=== PATIENT | female | born 1975 | race Caucasian/White ===

== ENCOUNTER → 2016-02-19 | Outpatient (CLI) | payer OTHER ==
--- NOTE | 2016-02-19 21:06 | DI ---
MRI LOW EXTREMITY JNT W/O CN,02/19/2016 12:03 PM: Clinical History: Knee pain Previous Exam: None at this facility. Findings: Multiplanar MR images are obtained through the right knee without contrast. Bony alignment is anatomic. No fractures are seen. Marrow signal is preserved. There is a trace amount of free fluid within the knee joint. There is no evidence of Myers's cyst. There is thinning of the articular cartilage without full-thickness defects. There are some osteophyt es noted. The medial and lateral menisci are intact. The anterior and posterior cruciate ligaments are also int act. The major vascular flow voids are unremarkable. There is normal signal within the surrounding musculature. The anterior and posterior cruciate ligaments are intact. The medial and lateral collateral ligaments are also intact. Impression: 1. 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 2. Degenerative changes of the medial and lateral compartments. 3. Very small knee joint effusion.
== END ==
LOC: MRI 09:03
PROVIDERS: ATTEND Orthopaedic Surgery
DX: M25.561 Pain in right knee (principal); M22.41 Chondromalacia patellae, right knee; M25.461 Effusion, right knee
CPT/HCPCS: 73721

== ENCOUNTER → 2016-03-22 | Outpatient (CLI) | payer OTHER ==
--- NOTE | 2016-03-22 13:25 | DI ---
XR ANKLE COMPLETE MIN 3VW,03/22/2016 10:06 AM: Clinical History: Syndesmotic disruption of the right ankle Previous Exam: None at this facility. Findings: 3 views of the right ankle are obtained, and demonstrate anatomic alignment without fractures. There is enthesopathy noted at the insertion of the plantar fascia. There are osteophytes noted. There is a right ankle joint effusion. Impression: 1. Mild degenerative changes of the right ankle without fractures.
== END ==
LOC: ORTHO 12:10
PROVIDERS: ATTEND Orthopaedic Surgery
DX: S93.431D Sprain of tibiofibular ligament of right ankle, subsequent encounter (principal); S83.31XD Tear of articular cartilage of right knee, current, subsequent encounter; M25.471 Effusion, right ankle
CPT/HCPCS: 73610

== ENCOUNTER → 2016-07-22 | Outpatient (CLI) | payer OTHER ==
[2016-07-22 14:45] LABS: HEMATOCRIT 34.4 % (37.0-47.0); HEMOGLOBIN 10.8 g/dL (12.0-16.0); MEAN CORPUSCULAR HEMOGLOBIN 24.3 PG (27-31); MEAN CORPUSCULAR HGB CONC 31.4 g/dL (33-37); MEAN CORPUSCULAR VOLUME 77.3 FL (81-99); MEAN PLATELET VOLUME 10.9 FL (7.4-12.2); RED BLOOD COUNT 4.45 10^6/uL (4.20-5.40)
--- NOTE | 2016-07-23 09:48 | DI ---
US PELVIC COMPLETE (NON OB), US PELVIC-TRANSVAGINAL,07/22/2016 2:37 PM: Clinical History: Menorrhagia with irregular cycle. Previous Exam: None at this facility. Findings: Multiple transabdominal and endovaginal grayscale and color Doppler sonographic images are obtained t hrough the pelvis, and demonstrate a normal-appearing uterus measuring 10.8 x 5.5 x 6.5 cm with a 14 mm endometrial stripe. This is at the upper limits of normal. The right ovary measures 2.4 x 1.9 x 2.2 cm while the left ovary measures 5.3 x 3.4 x 4.2 cm. There i s normal Doppler flow bilaterally. There is no free fluid within the cul-de-sac. Impression: Normal pelvic ultrasound with endometrial stripe at the upper limits of normal.
== END ==
LOC: US 14:32
PROVIDERS: ATTEND Nurse Practitioner Family
DX: N92.1 Excessive and frequent menstruation with irregular cycle (principal); N94.6 Dysmenorrhea, unspecified; F17.200 Nicotine dependence, unspecified, uncomplicated
CPT/HCPCS: 36415; 76830; 76856; 84443; 85027

== ENCOUNTER 2016-09-30 07:29 | Day surgery (SDC) | payer OTHER ==
[~2016-09-30 07:29] MED LIST: LIDOCAINE W/ SODIUM BICARB 0.5 ML SYR ONE; Lactated Ringers 2,000 ML PRIMARY IV ONE; Sodium Chloride 0.9% 100 ML IV ONE
[2016-09-30 07:49] LABS: BILIRUBIN,URINE NEGATIVE (NEG); CLARITY,URINE CLEAR (CLEAR); COLOR,URINE YELLOW; GLUCOSE, URINE (UA) NEGATIVE (NEG); NITRATE,URINE NEGATIVE (NEG); OCCULT BLOOD,URINE LARGE (NEG); PROTEIN,URINE NEGATIVE (NEG); UROBILINOGEN,URINE 0.2 mg/dL (0.2)
[2016-09-30 07:57] LABS: BACTERIA,URINE FEW; RBC,URINE 20-30 /hpf; URINE SAMPLE TYPE CLEAN CATCH URINE; WBC,URINE 0
[2016-09-30] MEDS ORDERED: MIDAZOLAM 5 MG/1 ML ONE (08:02)
[2016-09-30] MEDS ORDERED: ROCURONIUM 10 MG/1 ML - 5 ML VIAL IVP ONE (08:02)
[2016-09-30] MEDS ORDERED: fentaNYL Inj 250 MCG/5 ML VIAL ONE (08:02)
[2016-09-30] MEDS ORDERED: LIDOCAINE MPF 2% - 5 ML (20 MG/1 ML) ONE (08:03)
[2016-09-30] MEDS ORDERED: Sodium Chloride 0.9% vial 10 ML ONE (08:03)
[2016-09-30 08:14] LABS: HEMATOCRIT 37.8 % (37.0-47.0); HEMOGLOBIN 12.8 g/dL (12.0-16.0)
[2016-09-30] MEDS ORDERED: Acetaminophen 1000mg Inj 100 ML IV ONE (08:15)
[2016-09-30] MEDS ORDERED: ATROPINE SULFATE 0.4 MG/1 ML VIAL IVP PRN (08:30)
[2016-09-30] MEDS ORDERED: Prochlorperazine Edisylate Inj 10mg/2ml vial IVP PRN (08:30)
[2016-09-30] MEDS ORDERED: Lactated Ringers 1,000 ML PRIMARY IV SCH (08:30)
[2016-09-30] MEDS ORDERED: NORMAL SALINE 10 ML SYRINGE FLUSH IVP PRN ×2 (08:30→11:13)
[2016-09-30] MEDS ORDERED: fentaNYL Inj 100 MCG/2 ML VIAL IVP PRN (08:30)
[2016-09-30] MEDS ORDERED: HYDROmorphone 2 MG/1 ML IVP PRN (08:30)
[2016-09-30] MEDS ORDERED: Ondansetron ODT Tab 8 MG TAB PO PRN ×2 (08:30→11:13)
[2016-09-30] MEDS ORDERED: ONDANSETRON 4 MG/2 ML VIAL IVP PRN (08:30)
[2016-09-30] MEDS ORDERED: BUPIVACAINE 0.25% W/ EPI - 10 ML VIAL ONE ×2 (08:38→08:49)
[2016-09-30] MEDS ORDERED: LIDOCAINE HCL 2 % 10 ML JELLY URO-JECT TOPICAL ONE (08:40)
[2016-09-30] MEDS ORDERED: ePHEDrine Inj 50 MG/ML AMP ONE (09:23)
[2016-09-30] MEDS ORDERED: Opium-Belladonna 30-16.2mg 1 EACH SUPP.RECT RECTAL ONE (09:41)
[2016-09-30] MEDS ORDERED: DEXAMETHASONE PF 10 MG/1 ML VIAL ONE (10:06)
[2016-09-30] MEDS ORDERED: ONDANSETRON 4 MG/2 ML VIAL ONE ×2 (10:06→15:26)
[2016-09-30] MEDS ORDERED: KETOROLAC 30 MG/1 ML VIAL ONE (10:07)
[2016-09-30] MEDS ORDERED: HYDROmorphone 2 MG/1 ML ONE ×2 (10:20→12:55)
[2016-09-30] MEDS ORDERED: Lactated Ringers 1,000 ML PRIMARY IV ONE (10:39)
[2016-09-30] MEDS ORDERED: SUGAMMADEX SODIUM 200 MG/2 ML VIAL IV ONE (10:57)
[2016-09-30] MEDS ORDERED: GLYCOPYRROLATE 0.2 MG/1 ML VIAL ONE (10:58)
[2016-09-30] MEDS ORDERED: NEOSTIGMINE 1 MG/1 ML - 10 ML ONE (10:58)
[2016-09-30] MEDS ORDERED: KETOROLAC 15 MG/1 ML VIAL IVP PRN (11:13)
[2016-09-30] MEDS ORDERED: IBUPROFEN 800 MG TABLET PO PRN (11:13)
--- NOTE | 2016-09-30 11:19 | OB.OP.NOTE ---
Operative Report Surgeon: Jasmin Kiln Tender: Chuy Mendoza MD Anesthesia Type: General Anesthesia Provider: Taylor Hopkins CRNA Surgery Date: 09/30/16 Preoperative Diagnosis: MMR/Dysmenorrhea/RLQ Pain/SELINA Postoperative Diagnosis: Same Procedure: da Leydi Hysterectomy/RSO/Left Salpingectomy/TVT-O/Cystoscopy Estimated Blood Loss (mL): 90 Fluids: 3000 ml Complications: None Findings at Surgery: Normal size uterus. Normal right ovary. Left ovary with 4 cm follicular cyst containing clear fluid. No visible evidence of bowel, bladder, or ureter injury. At cysto, both ureters ejected urine and the bladder was intact. Indications for the Procedure: MMR/Dysmenorrhea/RLQ pain/SELINA Description of Procedure: See dictated operative report. Plan: Routine post op care and discharge to home.
[2016-09-30] MEDS ORDERED: oxyCODONE-ACETAMINOPHEN 5-325 TAB PO ONE ×3 (12:49→17:47)
[2016-09-30] MEDS: oxyCODONE-ACETAMINOPHEN 5-325 TAB PO PRN ×3 (12:55→17:40)
[2016-09-30] MEDS: HYDROmorphone 2 MG/1 ML IVP PRN ×2 (12:57→13:05)
[2016-09-30 13:52] VITALS: RESP 12
[2016-09-30 17:55] VITALS: TEMP 96.8
[2016-09-30] MEDS ORDERED: DOCUSATE 100 MG CAPSULE PO SCH (21:00)
== END 2016-09-30 17:50 | disposition home or self-care (01) ==
LOC: SDSC 07:29
PROVIDERS: ATTEND Obstetrics & Gynecology
DX: N92.1 Excessive and frequent menstruation with irregular cycle (principal); N94.6 Dysmenorrhea, unspecified; R10.31 Right lower quadrant pain; N39.3 Stress incontinence (female) (male)
CPT/HCPCS: 57288; 58552; 81001; 84703; 85014; 85018; A4216; J0131; J0694; J1100; J1170; J1885; J2001; J2250; J2405; J2704; J2710; J3010; J7050; J7120